=== PATIENT | female | born 1930 | race Caucasian/White ===

== ENCOUNTER → 2017-01-09 | Outpatient (CLI) | payer MEDICARE, BC ==
[2017-01-09 15:33] LABS: BLOOD, URINE NEGATIVE (NEGATIVE); COLOR,URINE YELLOW (YELLOW); LEUKOCYTE ESTERASE ,URINE TRACE (NEGATIVE); NITRITE,URINE POSITIVE (NEGATIVE); UROBILINOGEN,URINE 0.2 EU/DL (NORMAL)
[2017-01-09 18:05] LABS: BACTERIA,URINE 3+ (NEGATIVE); RBC,URINE NONE SEEN /HPF (0-3)
== END ==
LOC: LABN.PM 15:26
PROVIDERS: ATTEND Family Medicine
DX: N39.0 Urinary tract infection, site not specified (principal)
CPT/HCPCS: 81001; 87077; 87086; 87186

== ENCOUNTER 2017-01-13 16:38 | Emergency (ER) | payer MEDICARE, BC, MEDICAID ==
[~2017-01-13] VITALS: Ht 167.6 cm; Wt 57.2 kg
[2017-01-13 16:40] VITALS: Ht 167.6 cm; Wt 57.2 kg
--- OUTSIDE RECORDS SUMMARY | 2017-01-13 16:43 | XMS REPORT | Continuity of Care Document ---
Author Author [facility] Organization [facility] Address Unknown Phone Unavailable Allergies Active Description Code Type Severity Reaction Onset Reported/Identified Relationship to Patient Clinical Status Yes No Known Drug Allergies Drug Allergy 12/09/2012 Medications Problems Date Dx Coded Attending Type Code Diagnosis Diagnosed By 12/09/2012 Craig Hair MD 724.2 LUMBAGO 12/09/2012 Craig Hair MD 873.0 OPEN WOUND OF SCALP 12/09/2012 Craig Hair MD External E849.0 HOME ACCIDENTS 12/09/2012 Craig Hair MD E885.9 FALL FROM TRIPPING NEC 12/09/2012 Craig Hair MD Final V06.1 DTP/DTAP VACCINE Procedures Results Encounters ACCT No. Visit Date/Time Discharge Status Pt. Type Provider Facility Loc./Unit Complaint [id number] 12/09/2012 12:34:00 2012 14:30:00 DIS Emergency Craig Hair MD [facility]
--- OUTSIDE RECORDS SUMMARY | 2017-01-13 16:43 | XMS REPORT | Referral Summary ---
Author Author [facility] Organization [facility] Address Unknown Phone Unavailable Care Team Providers Care Programmer Or Analyst Name Role Phone Ade Rees Primary Care Physician [phone] Encounter [facility] [id number] Date(s): 11/03/15 - 11/06/15 [facility] [address] [place] [address] [phone] Discharge Diagnosis: Acute pain of right hip Discharge Diagnosis: Fall from slipping on ice Discharge Diagnosis: Comminuted, impacted fracture of the right superior pubic ramus. Discharge Diagnosis: Advanced dementia Discharge Diagnosis: Mildly impacted, nondisplaced fracture of of the right inferior pubic ramus. Discharge Disposition: 01-Home or Self Care Attending Physician: Haylie Madden MD Admitting Physician: Haylie Madden MD Vital Signs Most recent to 1 oldest [Reference Range]: Temperature Oral 36.7 degC [35.8-37.3 degC] (11/06/15 12:00 PM) Peripheral Pulse 82 bpm Rate [60-100 bpm] (11/06/15 12:00 PM) Heart Rate Monitored 91 bpm [60-100 bpm] (11/05/15 3:02 AM) Respiratory Rate 16 br/min [14-20 br/min] (11/06/15 12:00 PM) Blood Pressure 107/61 mmHg [90-140/60-90 mmHg] (11/06/15 12:00 PM) Mean Arterial 106 mmHg Pressure, Cuff (11/03/15 9:35 PM) SpO2 98 % (11/06/15 12:00 PM) Problem List Condition Effective Dates Status Health Status Informant Acute Active pain(Confirmed) At risk of pressure Active sore(Confirmed) Alzheimer's Active patient dementia(Confirmed) Impaired skin Active integrity(Confirmed) 1 TIA (transient Active patient ischemic attack)(Confirmed) Urinary Active incontinence(Confirm ed)2 1Problem added automatically by system based on initiation of Impaired Skin Integrity Plan of Care 2Problem added automatically by system based on initiation of Urinary Incontinence Plan of Care Allergies, Adverse Reactions, Alerts No Known Medication Allergies Medications Aricept 10 mg oral tablet 10 mg 1 tabs, Oral, BID, 0 Refill(s) Start Date: 11/06/15 Status: Ordered Aspirin Low Dose 81 mg, Oral, BID, 0 Refill(s) Start Date: 11/03/15 Status: Ordered Calcium 600+D 1 tabs, Oral, Daily, 0 Refill(s) Start Date: 11/03/15 Status: Ordered Colace 100 mg oral capsule 100 mg 1 caps, Oral, BID, 0 Refill(s) Start Date: 11/06/15 Status: Ordered Dulcolax Laxative 5 mg oral delayed release tablet 5 mg 1 tabs, Oral, Daily, Constipation, 0 Refill(s) Start Date: 11/06/15 Status: Ordered Milk of Magnesia 2,400 mg 30 mL, Oral, Daily, Constipation, 0 Refill(s) Start Date: 11/06/15 Status: Ordered MiraLax 17 g 1 packets, Oral, Daily, Constipation, 0 Refill(s) Start Date: 11/06/15 Status: Ordered Percocet 5/325 oral tablet 1 tabs, Oral, q4hr, Pain Moderate (4-6), 0 Refill(s) Start Date: 11/06/15 Status: Ordered Xarelto 10 mg oral tablet 10 mg 1 tabs, Oral, Daily, with food, for 21 days then stop, 0 Refill(s) Start Date: 11/06/15 Stop Date: 11/27/15 Status: Ordered Zofran 4 mg oral tablet 4 mg 1 tabs, Oral, q6hr, Nausea, 0 Refill(s) Start Date: 11/06/15 Status: Ordered Results Hematology Most recent to 1 oldest [Reference Range]: WBC [4.8-10.8 11.5 10*3/uL 10*3/uL] *HI* (11/06/15 5:45 AM) RBC [4.00-5.20] 3.25 *LOW* (11/06/15 5:45 AM) Hgb [12.0-16.0 9.6 gm/dL gm/dL] *LOW* (11/06/15 5:45 AM) Hct [37.0-47.0 %] 29.2 % *LOW* (11/06/15 5:45 AM) MCV [82.0-99.0 fL] 89.8 fL (11/06/15 5:45 AM) MCH [27.0-32.0 pg] 29.5 pg (11/06/15 5:45 AM) MCHC [32.0-36.0 32.9 gm/dL gm/dL] (11/06/15 5:45 AM) RDW [11.5-14.5 %] 13.4 % (11/06/15 5:45 AM) Platelet [150-400 151 10*3/uL 10*3/uL] (11/06/15 5:45 AM) MPV [9.4-12.4 fL] 10.5 fL (11/06/15 5:45 AM) Chemistry Most recent to 1 oldest [Reference Range]: Sodium Lvl [136-144 136 mEq/L mEq/L] (11/06/15 5:45 AM) Potassium Lvl 3.6 mEq/L [3.6-5.1 mEq/L] (11/06/15 5:45 AM) Chloride [99-109 105 mEq/L mEq/L] (11/06/15 5:45 AM) CO2 [22-32 mEq/L] 23 mEq/L (11/06/15 5:45 AM) AGAP [3-20] 8 (11/06/15 5:45 AM) BUN [4-20 mg/dL] 12 mg/dL (11/06/15 5:45 AM) Glucose Lvl [70-100 107 mg/dL mg/dL] *HI* (11/06/15 5:45 AM) Creatinine Lvl 0.43 mg/dL [0.44-1.03 mg/dL] *LOW* (11/06/15 5:45 AM) eGFR [>60] >60 1 (11/06/15 5:45 AM) Calcium Lvl 8.4 mg/dL [8.6-10.0 mg/dL] *LOW* (11/06/15 5:45 AM) Albumin Lvl [3.5-4.8 3.5 gm/dL gm/dL] (11/03/15 6:45 PM) Magnesium Lvl 1.8 mg/dL [1.8-2.5 mg/dL] (11/06/15 5:45 AM) Phosphorus [2.4-4.7 2.9 mg/dL 2 mg/dL] (11/03/15 6:45 PM) 1Result Comment: Multiply eGFR results by 1.21 for race. 2Result Comment: High dosages of liposomal Amphotericin B (AmBisome) therapy or other drug preparations that use a liposomal envelope to facilitate drug delivery may cause falsely elevated results for phosphorus. Immunizations Vaccine Date Refusal Reason pneumococcal 23-polyvalent vaccine 11/04/15 Procedures Procedure Date Related Diagnosis Body Site Hysterectomy Mitral valve operation Varicose vein ligation and stripping Social History Social History Type Response Smoking Status Former smoker; Type: Cigarettes Assessment and Plan No data available for this section
[2017-01-13] MEDS ORDERED: NO ROUTINE MEDS (16:58)
--- NOTE | 2017-01-13 17:09 | ERPDOC ---
Departure Disposition Decision Date: Jan 13, 2017 Disposition Decision Time: 18:31 Disposition: 04 TO [facility] HOME/FACILITY Impression Impression Impression: Primary Impression: Scalp laceration Additional Impression: Fall Condition: Stable Seen By: Mid-level only Referrals: JOSELIN CRAWFORD MD (Family) Patient Instructions: Head Injury (ED), Acute Wound Care (ED) Problems/Meds/Labs Reviewed?: Yes Medications reviewed and manag: Yes Additional Instructions: 1. Keep scalp wound clean and dry. Do not scrub. 2. Tetanus shot given today 3. Follow up with DR. Crawford as needed Follow up care ordered?: Yes Mental Status: Alert, Confused HPI - Fall/Injury General Chief Complaint: Fall Stated Complaint: FALL,HEAD LACERATION Time Seen by Provider: 17:10 Source: patient, RN/MD (er NURSE) Exam Limitations: dementia HPI - Fall/Injury Initial Comments Raiza is an 86 year old female who reportedly suffered a fall at [facility] suffering a injury to her head. Unwitnessed fall by RN report. Comes emergency room by private facility vehicle with a small scalp laceration that is controlled with bleeding. Patient is able to stand. Denies any other complaints or injuries. Hx dementia. Does have hx frequent falls, currently being treated for UTI which she gets fairly often. Does not take any blood thinners besides baby aspirin daily. Unknown last Tetanus-family coming to report this date. Occurred At: home Duration: 1 hr Pain Scale: Now: Unable to Rate Injuries/Pain Location: head Context: unknown Loss of Consciousness: no loss of consciousness Associated Symptoms: denies symptoms Allergies: Coded Allergies: No Known Allergies (Unverified , 01/13/17) Past History Past Medical History Cardiac: CAD Psychological: anxiety, dementia Surgical History Surgical History Comments unk-pt poor historian Family History Family History Comments unknown-pt poor historian Social History Smoking Status: Never smoker Housing: group home Review of Systems Unable to Obtain ROS Due to: dementia Physical Exam General General Nourishment: well nourished, well developed, appears stated age, no acute distress, adult Vitals and Pain First Documented Vital Signs Date Time Temp Pulse Resp B/P Pulse Ox O2 Delivery O2 Flow Rate FiO2 01/13/17 16:40 98.3 80 16 178/79 94 Room Air Weight: Kilograms: 57.200 Height (feet): 5 Height (inches): 6.00 Triage Pain Scale: Eyes (brief) Eyes Brief: found: PERRL, not found: scleral icterus ENMT (brief) ENMT Brief: FOUND: mucosa moist Neck (brief) Neck: FOUND: trachea midline, NOT FOUND: tenderness Respiratory (brief) Respiratory: FOUND: clear all sánchez, equal bilaterally Cardiovascular (brief) Cardiac: FOUND: regular rate, regular rhythm Abdomen (brief) Abdominal Brief: FOUND: bowel normo active x4, soft, NOT FOUND: tender Musculoskeletal (brief) Musculoskeletal Brief: NOT FOUND: tenderness Integumentary (brief) Integumentary Brief: FOUND: dry, pink, warm Psychiatric (brief) Psychiatric Brief: FOUND: alert, attentive, oriented (x1), NOT FOUND: normal affect (confused) Differential Diagnoses Considering: Concussion, Contusion, Subdural Hematoma Progress Results/Orders Orders Procedure Category Date Status Time Ct Head W/O Contrast CT 01/13/17 Logged Tetanus + Diphtheria PHA 01/13/17 Complete Toxoid (Tenivac) 17:45 Medications Current ED Medications Tetanus/ Diphtheria Toxoids Adsorbed (Tenivac) 0.5 ml O ONCE IM Last administered on 01/13/17t 18:14; Start 01/13/17 at 17:45; Stop 01/13/17 at 17:46 ; Status DC Progress Progress 1730 - Wound to scalp cleansed. 0.5 cm laceration-superficial no active bleeding. No repair done 1830 - family advised of negative CT findings. They indicate patient has dementia and does fall quite a bit. They have no additional concerns at this time. Pt received last injection of IM Rocephin today for UTi. will follow with QUENTIN Lee APRN Jan 13, 2017 17:09
[2017-01-13] MEDS ORDERED: MENT71OI TOP (17:10)
[2017-01-13] MEDS ORDERED: ASPI-557 PO (17:10)
[2017-01-13] MEDS ORDERED: [UNRECOGNIZED DRUG - CODE] PO (17:10)
--- NOTE | 2017-01-13 17:11 | NUR ---
QUENTIN NÚÑEZ IN
[2017-01-13] MEDS ORDERED: BUSP5TAB3 PO (17:13)
[2017-01-13] MEDS ORDERED: CRAN405C PO (17:13)
[2017-01-13] MEDS ORDERED: DONE10TA PO (17:13)
[2017-01-13] MEDS ORDERED: MEMA10TA12 PO (17:13)
[2017-01-13] MEDS ORDERED: MENT118G TOP (17:14)
[2017-01-13] MEDS ORDERED: SERT100T PO (17:14)
--- OUTSIDE RECORDS SUMMARY | 2017-01-13 17:23 | XMS REPORT | Continuity of Care Document ---
Author Author [facility] Organization [facility] Address Unknown Phone Unavailable Allergies Active [...] Status Pt. Type Provider Facility Loc./Unit Complaint [id number] 12/09/2012 12:34:00 2012 14:30:00 DIS Emergency Craig Hair MD [facility] on [facility]
--- NOTE | 2017-01-13 17:27 | NUR ---
FAMILY DAUGHTER AT BEDSIDE
[2017-01-13] MEDS ORDERED: TETANUS + DIPHTHERIA (Td)(Adult) 0.5ml SYRINGE IM ONE (17:45)
--- NOTE | 2017-01-13 17:45 | NUR ---
TO CT PER CART
--- NOTE | 2017-01-13 17:53 | NUR ---
RETURNED FROM CT
--- NOTE | 2017-01-13 18:05 | NUR ---
REPORT TO KIMBERLY GERARDO
[2017-01-13 18:54] VITALS: BP 157/75; PULSE 78; RESP 20; TEMP 98.3; O2SAT 98
--- NOTE | 2017-01-13 18:54 | NUR ---
DEPART PT AND FAMILY GIVEN DI FOR HEAD INJURY, ACUTE WOUND CARE, AND F/U. PT AND FAMILY VERBALIZE UNDERSTANDING. QUESTIONS ASKED/ANSWERED - DENY FURTHER QUESTIONS/NEEDS AT THIS TIME. REPORT CALLED TO AKIN SALGADO AT [facility]. PT ASSISTED TO WHEEL CHAIR ASSIST X1. PERSONAL BELONGINGS GATHERED. PT TO ED EXIT - FAMILY AT SIDE, NO SIGN OF DISTRESS. PT TO [facility] BY FAMILY.
--- NOTE | 2017-01-15 13:25 | DI ---
Indication: ITS.REASON: fall, head injury PROCEDURE: CT HEAD W/O CONTRAST: Encounter: Initial Comparison: None Technique: Axial CT images through the head were performed without contrast. Iterative Reconstruction dose reducing technique was utilized. FINDINGS: Moderate generalized atrophy. The ventricles are of normal size, shape, and configuration for the patient's age. 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 There is no evidence of acute intracranial hemorrhage, midline displacement, or mass effect. There are scattered areas of low attenuation in the white matter which most likely represent changes of chronic microvascular ischemia. The CT attenuation of the brain parenchyma is otherwise normal within the cerebellum, brain stem, and cerebral hemispheres. The tympanic cavities and mastoid air cells are free of appreciable disease. There are no definite fractures of the skull base, calvarium, or visualized portion of the midface. Right parietal scalp swelling. IMPRESSION: No CT evidence of acute traumatic intracranial injury. There is a preliminary report by [employer] radiologic. .
== END 2017-01-13 18:54 ==
LOC: ED 16:38
DX: S01.01XA Laceration without foreign body of scalp, initial encounter (principal); W19.XXXA Unspecified fall, initial encounter; Y93.9 Activity, unspecified; Y92.129 Unspecified place in nursing home as the place of occurrence of the external cause; Y99.8 Other external cause status
CPT/HCPCS: 90471; 90714; 96372

== ENCOUNTER → 2017-02-02 | Outpatient (CLI) | payer MEDICARE, BC, MEDICAID ==
[~2017-02-02] MED LIST: ASPI-557 PO; BUSP5TAB3 PO; CRAN405C PO; DONE10TA PO; MEMA10TA12 PO; MENT118G TOP; MENT71OI TOP; SERT100T PO; [UNRECOGNIZED DRUG - CODE] PO
[2017-02-02 10:24] LABS: BLOOD, URINE NEGATIVE (NEGATIVE); COLOR,URINE YELLOW (YELLOW); LEUKOCYTE ESTERASE ,URINE 1+ (NEGATIVE); NITRITE,URINE NEGATIVE (NEGATIVE); UROBILINOGEN,URINE 0.2 EU/DL (NORMAL)
[2017-02-02 10:58] LABS: RBC,URINE NONE SEEN /HPF (0-3); SQUAMOUS EPITHELIAL CELL,UR 0-5
[2017-02-02 10:59] LABS: BACTERIA,URINE 2+ (NEGATIVE)
== END ==
LOC: LABN.PM 10:18
PROVIDERS: ATTEND Family Medicine
DX: N39.0 Urinary tract infection, site not specified (principal)
CPT/HCPCS: 81001; 87077; 87086; 87186